=== PATIENT | female | born 1975 | race Caucasian/White ===

== ENCOUNTER → 2018-06-29 11:01 | Outpatient (CLI) | payer OTHER, SELFPAY ==
--- NOTE | 2018-06-29 | DI.RAD.S_ITS ---
PROCEDURE: XR CHEST 2V INDICATIONS: LEFT SIDED CHEST PAIN TECHNIQUE: 2 views of the chest were acquired. COMPARISON: None. FINDINGS: Surgical changes and devices: None. Lungs and pleura: No pleural effusions or pneumothorax. Lungs are clear. Mediastinum: Mediastinal contours are normal. Heart size is normal. Bones and chest wall: No suspicious bony abnormalities. Soft tissues appear unremarkable. IMPRESSION: No acute pulmonary process. Dictated by: Yodit Kumar M.D. on 06/29/2018 at 13:57 Approved by: Yodit Kumar M.D. on 06/29/2018 at 13:58
== END ==
PROVIDERS: PCP Nurse Practitioner Family; Visit Provider Nurse Practitioner Family
DX: R07.9 Chest pain, unspecified (principal)
CPT/HCPCS: 71046

== ENCOUNTER → 2019-01-14 09:03 | Outpatient (CLI) | payer OTHER, SELFPAY ==
--- NOTE | 2019-01-14 | DI.MG.S_ITS ---
BILATERAL DIGITAL SCREENING MAMMOGRAM 3D/2D WITH CAD: 01/14/2019 CLINICAL: Routine screening. Family history of breast cancer. Comparison is made to exams dated: 01/10/2018 mammogram and 09/21/2012 mammogram - [facility]. There are scattered fibroglandular elements in both breasts. Current study was also evaluated with a Computer Aided Detection (CAD) system. There is a possible developing 4 mm equal density asymmetry in the left breast posterior depth medial region seen on the craniocaudal view only. Based on tomographic imaging, this asymmetry is noted in the most superficial tissues of the lower, inner left breast and may represent summation artifact with a skin lesion. Additionally, the inferior margin of the left breast is not well visualized at the inferior mammary fold where this finding is projected to be. No other significant masses, calcifications, or other findings are seen in either breast. IMPRESSION: INCOMPLETE: NEEDS ADDITIONAL IMAGING EVALUATION The possible developing 4 mm equal density asymmetry in the left breast is indeterminate. Additional views with possible ultrasound are recommended. Recommend dedicated lateral view of the inferior mammary fold during additional imaging. This exam was interpreted at Station ID: [id number]. NOTE: For mammograms, a report in lay terms will be sent to the patient. Approximately 15% of breast malignancies will not be visualized mammographically. In the management of a palpable breast mass, a negative mammogram must not discourage biopsy of a clinically suspicious lesion. Electronically Signed By: Clarke Mccabe M.D. aty/:01/14/2019 11:11:53 letter sent: Additional Imaging Needed ACR BI-RADS Category 0: Incomplete 3340F
== END ==
PROVIDERS: Family Provider Nurse Practitioner Family; PCP Nurse Practitioner Family; Visit Provider Nurse Practitioner Family
DX: Z12.31 Encounter for screening mammogram for malignant neoplasm of breast (principal); Z80.3 Family history of malignant neoplasm of breast
CPT/HCPCS: 77063; 77067

== ENCOUNTER → 2019-02-04 12:27 | Outpatient (CLI) | payer OTHER, SELFPAY ==
--- NOTE | 2019-02-04 | DI.MG.S_ITS ---
UNILATERAL LEFT DIGITAL DIAGNOSTIC MAMMOGRAM 3D/2D WITH ADDITIONAL VIEWS: 02/04/2019 CLINICAL: Additional evaluation requested from prior study. Comparison is made to exams dated: 01/14/2019 mammogram, 01/10/2018 mammogram, and 09/21/2012 mammogram - [facility]. There are scattered fibroglandular elements in left breast. Previously identified 4 mm equal density asymmetry in the left breast posterior depth medial region seen on the craniocaudal view only on comparison screening mammograms of 01/14/2019 persists with additional views. This localizes to the inferior left breast on tomosynthesis views. A left inferior medial left breast posterior depth skin mole was marked with a circular mole marker, and is separate from and anterolateral to the asymmetry described above. IMPRESSION: INCOMPLETE: NEEDS ADDITIONAL IMAGING EVALUATION Previously identified 4 mm equal density asymmetry in the left breast posterior depth medial region seen on the craniocaudal view only on comparison screening mammograms of 01/14/2019 persists and localizes to the inferior medial left breast with additional views. A targeted ultrasound is recommended for further evaluation, and will be performed immediately following this exam. This exam was interpreted at Station ID: [id number]. NOTE: For mammograms, a report in lay terms will be sent to the patient. Approximately 15% of breast malignancies will not be visualized mammographically. In the management of a palpable breast mass, a negative mammogram must not discourage biopsy of a clinically suspicious lesion. Electronically Signed By: Ronal Ritter M.D. ecl/:02/04/2019 13:32:40 ACR BI-RADS Category 0: Incomplete 3340F
--- NOTE | 2019-02-04 | DI.US.S_ITS ---
LIMITED ULTRASOUND OF LEFT BREAST: 02/04/2019 CLINICAL: Addition imaging of left breast. Comparison is made to exams dated: 02/04/2019 mammogram, 01/14/2019 mammogram, and 01/10/2018 mammogram - [facility]. Real-time and Doppler ultrasound of the left breast lower inner quadrant were performed. [place] scale images of the real-time examination were reviewed. No underlying breast mass or abnormality is identified. There is no ultrasound correlate for the previously identified 4 mm equal density asymmetry in the left breast posterior depth medial region seen on the craniocaudal view only on comparison screening mammograms of 01/14/2019, which persisted and localized to the inferior medial left breast with additional diagnostic views performed earlier today 02/04/2019. IMPRESSION: PROBABLY BENIGN No ultrasound correlate for the previously identified 4 mm equal density asymmetry in the left breast posterior depth medial region seen on the craniocaudal view only on comparison screening mammograms of 01/14/2019, which persisted and localized to the inferior medial left breast with additional diagnostic views performed earlier today 02/04/2019. A follow-up mammogram and possible ultrasound in 6 months is recommended to demonstrate stability. These results and recommendations were discussed with the patient at the time of the exam by Dr. Ritter in person. The patient was advised to monitor her breasts and to return sooner for re-evaluation should she feel anything grow or change. This exam was interpreted at Station ID: [id number]. Electronically Signed By: Ronal Ritter M.D. ecl/:02/04/2019 14:09:15 letter sent: Followup Recommended Ultrasound BI-RADS: 3 Probably benign
== END ==
PROVIDERS: Family Provider Nurse Practitioner Family; PCP Nurse Practitioner Family; Visit Provider Nurse Practitioner Family
DX: R92.8 Other abnormal and inconclusive findings on diagnostic imaging of breast (principal); N64.89 Other specified disorders of breast
CPT/HCPCS: 76642; 77065; G0279

== ENCOUNTER → 2019-08-12 12:24 | Outpatient (CLI) | payer OTHER, SELFPAY ==
--- NOTE | 2019-08-12 | DI.MG.S_ITS ---
UNILATERAL LEFT DIGITAL DIAGNOSTIC MAMMOGRAM 3D/2D SHORT-TERM FOLLOW-UP: 08/12/2019 CLINICAL: Patient returns for a 6 month follow up of the left breast. Comparison is made to exams dated: 02/04/2019 mammogram, 01/14/2019 mammogram, and 01/10/2018 mammogram - [facility]. There are scattered fibroglandular elements in left breast. There is a 0.3 cm oval equal density focal asymmetry with an indistinct margin in the left breast at 7 o'clock posterior depth. This is not significantly changed. No other significant masses or calcifications are seen in the breast. IMPRESSION: PROBABLY BENIGN The 0.3 cm oval equal density focal asymmetry in the left breast is probably benign. A follow-up mammogram in 6 months is recommended. A follow-up mammogram in 6 months is recommended to demonstrate stability. Patient will also be due for screening of the contralateral breast at that time. This exam was interpreted at Station ID: [id number]. NOTE: For mammograms, a report in lay terms will be sent to the patient. Approximately 15% of breast malignancies will not be visualized mammographically. In the management of a palpable breast mass, a negative mammogram must not discourage biopsy of a clinically suspicious lesion. Electronically Signed By: Alberto moe/:08/12/2019 13:24:28 letter sent: Followup Recommended ACR BI-RADS Category 3: Probably benign [id number]
--- NOTE | 2019-08-12 | DI.US.S_ITS ---
PROCEDURE: US RENAL COMPLETE INDICATIONS: 6 MONTH FOLLOW UP BREAST/PELVIC PAIN TECHNIQUE: Real-time scanning was performed of the kidneys and bladder, with image documentation. COMPARISON: [facility], , PELVIC LIMITED, 05/21/2012, 9:24. FINDINGS: Kidneys: Kidneys are normal in size. Right kidney measures 12.1 cm long; left kidney measures 12.1 cm long. Right renal cortical thickness is 0.9 cm; left renal cortical thickness is 1.1 cm. Renal cortical echotexture is normal. No hydronephrosis or nephrolithiasis. No suspicious solid renal mass lesions. Hypoechoic solid-appearing mass seen superior to the right kidney which might represent adrenal mass measuring up to 17 mm. Bladder: Pre-void bladder volume is 180 mL. Post-void residual is 11 mL. Pre-void images demonstrate no intraluminal masses or stones. On pre-void images, bilateral ureteral jets are noted with color Doppler interrogation. (Of note, ureteral jets may not be detectable in up to 25% of cases due to insufficient differences in specific gravity between ureteral and bladder urine). Miscellaneous: No free pelvic fluid. Probable right ovarian cyst incidentally noted measuring 4.3 x 2.6 x 2.9 cm. IMPRESSION: 1. Possible right adrenal mass. If indicated, adrenal protocol CT could be performed for further assessment. 2. Probable simple right ovarian cyst measuring up to 4.3 cm. When clinically feasible, recommend formal pelvic ultrasound for further characterization. Dictated by: He Crane [facility] Interpreted: Clarke Mccabe MD on 08/12/2019 at 13:56 Approved by: Clarke Mccabe M.D. on 08/12/2019 at 17:22
== END ==
PROVIDERS: Family Provider Nurse Practitioner Family; PCP Nurse Practitioner Family; Visit Provider Nurse Practitioner Family
DX: R92.8 Other abnormal and inconclusive findings on diagnostic imaging of breast (principal); N64.89 Other specified disorders of breast; R10.2 Pelvic and perineal pain
CPT/HCPCS: 76770; 77065; G0279

== ENCOUNTER → 2019-08-18 06:56 | Outpatient (CLI) | payer OTHER, SELFPAY ==
--- NOTE | 2019-08-18 | DI.US.S_ITS ---
PROCEDURE: US PELVIC COMPLETE INDICATIONS: OVARIAN CYST TECHNIQUE: Real-time scanning was performed of the pelvic organs, with image documentation. Additional endovaginal scanning was necessary due to incomplete visualization of the adnexal and endometrial structures by transabdominal scanning. COMPARISON: None. FINDINGS: Transabdominal scanning: Limited scanning through the kidneys shows no hydronephrosis. No pathologic free abdominal or pelvic fluid. Anteverted uterus. IUD in place. Endovaginal scanning: Uterus: Uterus is normal in size at 10.1 x 5.3 x 6.6 cm. a shadowing within the endometrium from an IUD is present. The endometrium measures 6.1 mm in combined thickness. A proteinaceous 12 mm nabothian cyst is seen in the cervix. Ovaries: Right upper measures 4.0 x 2.7 x 2.5 cm and contains a simple cyst measuring 3.7 cm. The left ovary measures 3.7 x 2.8 x 4.1 cm, seen transabdominally only, and also contains a simple cyst measuring 2.8 cm. There is normal arterial flow in each ovary. No free fluid in the cul-de-sac. IMPRESSION: 1. The uterus contains an IUD in expected location. 2. Dominant follicle/simple cysts present on each ovary. These appear physiologic and morphology. Dictated by: Kirsten Kellogg M.D. on 08/19/2019 at 14:12 Approved by: Kirsten Kellogg M.D. on 08/19/2019 at 14:20
== END ==
PROVIDERS: PCP Nurse Practitioner Family; Visit Provider Nurse Practitioner Family
DX: N83.292 Other ovarian cyst, left side (principal); N83.291 Other ovarian cyst, right side; Z97.5 Presence of (intrauterine) contraceptive device
CPT/HCPCS: 76856

== ENCOUNTER → 2020-01-28 10:09 | Outpatient (CLI) | payer OTHER, SELFPAY ==
--- NOTE | 2020-01-28 | DI.MG.S_ITS ---
BILATERAL DIGITAL DIAGNOSTIC MAMMOGRAM 3D/2D: 01/28/2020 CLINICAL: Short term follow up, due bilateral. Comparison is made to exams dated: 08/12/2019 mammogram, 02/04/2019 mammogram, 01/14/2019 mammogram, and 01/10/2018 mammogram - [facility]. There are scattered fibroglandular elements in both breasts. There is a stable asymmetry in the left breast posterior depth medial region seen on the craniocaudal view only. No other significant masses, calcifications, or other findings are seen in either breast. IMPRESSION: INCOMPLETE: NEEDS ADDITIONAL IMAGING EVALUATION The stable asymmetry in the left breast is indeterminate. A targeted ultrasound of the left breast is recommended and will be performed immediately following this exam. This exam was interpreted at Station ID: [id number]. NOTE: For mammograms, a report in lay terms will be sent to the patient. Approximately 15% of breast malignancies will not be visualized mammographically. In the management of a palpable breast mass, a negative mammogram must not discourage biopsy of a clinically suspicious lesion. Electronically Signed By: Argelia Gardner M.D. lk/:01/28/2020 11:14:41 ACR BI-RADS Category 0: Incomplete [id number]
--- NOTE | 2020-01-28 | DI.US.S_ITS ---
ULTRASOUND OF LEFT BREAST: 01/28/2020 CLINICAL: Abnormal mammogram. Comparison is made to exams dated: 01/28/2020 mammogram, 08/12/2019 mammogram, 02/04/2019 ultrasound, 02/04/2019 mammogram, 01/14/2019 mammogram, and 01/10/2018 mammogram - [facility]. Ultrasound of the left breast was performed on the area of interest. [place] scale images of the real-time examination were reviewed. IMPRESSION: PROBABLY BENIGN There is no sonographic abnormality seen in the left breast to correspond with the mammography finding. A follow-up mammogram and a possible ultrasound in 12 months is recommended. This exam was interpreted at Station ID: [id number]. SUMMARY: The patient will be due for her bilateral mammogram at this time. Electronically Signed By: Argelia Gardner M.D. lk/:01/28/2020 11:15:39 letter sent: Followup Recommended Ultrasound BI-RADS: 3 Probably benign
== END ==
PROVIDERS: PCP Nurse Practitioner Family; Referring Provider Nurse Practitioner Family; Visit Provider Nurse Practitioner Family
DX: R92.8 Other abnormal and inconclusive findings on diagnostic imaging of breast (principal); N64.89 Other specified disorders of breast
CPT/HCPCS: 76642; 77066; G0279